=== PATIENT | male | born 2000 | race African-American/Black ===

== ENCOUNTER 2023-11-04 18:44 | Emergency (ER) | payer OTHER ==
[~2023-11-04] VITALS: Ht 185.4 cm; Wt 77.7 kg
[2023-11-04 18:57] VITALS: BP 112/75; PULSE 97; RESP 18; TEMP 97.9; O2SAT 96
[2023-11-04] MEDS ORDERED: METOCLOPRAMIDE HCL 10MG/2ML VIAL IV ONE (20:15)
[2023-11-04] MEDS ORDERED: DEXAMETHASONE 10 MG/ML VIAL IV ONE (20:15)
[2023-11-04] MEDS ORDERED: DIPHENHYDRAMINE 50MG/ML VIAL IV ONE (20:15)
[2023-11-04] MEDS ORDERED: ONDA4TAB50 MT (22:05)
== END 2023-11-04 22:45 | disposition home or self-care (01) ==
LOC: ER 18:44
DX: G43.909 Migraine, unspecified, not intractable, without status migrainosus (principal); Z86.59 Personal history of other mental and behavioral disorders; Z20.822 Contact with and (suspected) exposure to COVID-19
CPT/HCPCS: 99284; 96374; 96375; 87426; 87804 ×2; J1100; J1200; J2765; C9803